=== PATIENT | female | born 1970 | race Caucasian/White ===

== ENCOUNTER 2021-07-28 10:08 | Emergency (ER) | payer SELFPAY ==
--- NOTE | ~2021-07-28 | XR_ITS ---
EXAMINATION: XR foot LT min 3V EXAM DATE: 07/28/2021 11:02 INDICATION: Object Hit Proximal 4 And 5 Metatarsal 1 Week Ago/Bump. TECHNIQUE: Left foot dorsoplantar, lateral and oblique projections obtained and reviewed. Comparison is made to prior examination from 04/10/2017. FINDINGS: Left metatarsal bones unremarkable. There is small inferior calcaneal spur. The joint spac es are uniform. There are no bony erosions identified. There are no acute fractures or dislocations i dentified. There is no subcutaneous gas. The soft tissue is unremarkable. There are no radiopaque foreign bodies. IMPRESSION: Left foot exam without acute osseous findings. Reviewed, dictated and finalized at location A.
--- NOTE | 2021-07-28 10:52 | ED.LOWEXIN ---
HPI - Extremity Injury (Lower) General Chief Complaint: Extremity Injury, Lower Stated Complaint: work injury/ Time Seen by Provider: 07/28/21 10:30 Source: RN notes reviewed History of Present Illness HPI Narrative: Patient presents emergency department from home for left foot pain. Patient states 1 week ago she was at work when she dropped a piece of metal equipment on her left foot. States she was wearing shoes at that time. States that since that time she has had pain over the dorsal and lateral aspect of the foot she has been able to walk on the foot she denies any numbness or tingling or any other symptoms Related Data Allergies Allergy/AdvReac Type Severity Reaction Status Date / Time influenza virus vaccine, Allergy Severe TROUBLE Verified 02/28/15 07:46 specific BREATHING, CHEST TIGHTNESS ceftriaxone Allergy Unknown Verified 04/16/16 17:08 codeine Allergy Unknown NAUSEA Verified 02/24/15 15:03 latex Allergy Unknown HIVES AND Verified 02/24/15 15:01 ITCHING meperidine Allergy Unknown N/V AND COTTON Verified 02/24/15 15:01 nabumetone Allergy Unknown HIVES Verified 02/24/15 15:02 propoxyphene Allergy Unknown N/V/ AND COTTON Verified 02/24/15 15:03 tramadol Allergy Unknown N/V AND COTTON Verified 02/24/15 15:01 Review of Systems Review of Systems: Gen.: Denies fevers or chills Musculoskeletal: See HPI Neuro: Denies numbness, tingling, weakness Skin: Denies rash Endo: Denies DM PMFSH Past Medical History Medical History (Updated 07/28/21 @ 11:15 by Luis Manuel Pruitt DO) Patient denies significant medical history Family History Family History (Updated 12/17/13 @ 07:13 by DOCTOR UNKNOWN) Other Family history of arthritis Hypertension Social History Social History Smoking status: Never smoker Exam Narrative: APPEARANCE: No acute distress, nontoxic, resting in bed Eyes: EOMI HEENT: Normocephalic, atraumatic, RESPIRATORY: No respiratory distress MUSCULOSKELETAl: Tender palpation of the left dorsal lateral foot no swelling or ecchymosis no tenderness of the ankle dorsalis pedis pulse 2+ neurovascular intact NEURO: Awake and alert. Following commands, speech normal, no focal deficits SKIN:: Warm, dry. Normal Color no rash or lesions Course Course Emergency Course: Discussed with patient results of workup and diagnosis. Discussed need for follow-up with primary care, proper use of medication, and reasons to return to the emergency department. Patient understands and agrees to current treatment plan MDM - Extremity Injury (Lower) Imaging Data Radiologist's impression: ITS Impressions Foot X-Ray 07/28/21 11:03 IMPRESSION: Left foot exam without acute osseous findings. Discharge Plan Discharge Clinical Impression: Contusion of foot, left Patient Disposition: Home, Self-Care Condition: Stable Instructions: Antibiotic Form, Foot Contusion (ED) Prescriptions: New ibuprofen [IBU] 600 mg tablet 600 mg PO Q6H PRN (Reason: pain) Qty: 20 RF: 0 Follow-up/Referrals: Pancho,Sundar Townsend MD [Primary Care Provider] - 2 Days Time of Disposition: 11:16
[2021-07-28 11:05] VITALS: BP 153/107; PULSE 86; RESP 16; TEMP 36.4; O2SAT 100
[2021-07-28 11:23] VITALS: BP 153/107; PULSE 86; RESP 16; TEMP 36.4; O2SAT 100
== END 2021-07-28 12:00 | disposition home or self-care (01) ==
PROVIDERS: Emergency Provider Emergency Medicine; PCP Emergency Medicine
DX: S90.32XA Contusion of left foot, initial encounter (principal); W20.8XXA Other cause of strike by thrown, projected or falling object, initial encounter
CPT/HCPCS: 73630; 99283

== ENCOUNTER 2023-01-28 09:36 | Outpatient (CLI) | payer OTHER, SELFPAY ==
--- NOTE | ~2023-01-28 | XR_ITS ---
EXAMINATION: XR foot LT min 3V DATE: 01/28/2023 09:54 INDICATION: Left foot pain. Fall. TECHNIQUE: 4 views of left foot including weightbearing views were obtained. COMPARISON: Left foot radiographs 07/28/2021 FINDINGS: Bone alignment is normal. No fracture. There is mild osteoarthritis of first metatarsophala ngeal joint and second proximal interphalangeal joint. There is an enthesophyte at plantar aspect of calcaneal tuberosity. IMPRESSION: 1. Mild polyarticular osteoarthritis. Reviewed, dictated and finalized at location A.
== END 2023-01-28 09:37 | disposition home or self-care (01) ==
PROVIDERS: PCP Emergency Medicine; Visit Provider Orthopaedic Surgery
DX: M79.672 Pain in left foot (principal); M19.072 Primary osteoarthritis, left ankle and foot
CPT/HCPCS: 73630